=== PATIENT | female | born 1975 ===

== ENCOUNTER 2018-05-07 06:48 | Day surgery (SDC) | payer OTHER ==
[~2018-05-07 06:48] MED LIST: OSTERA TABLET1 EACH PO; VIT C-ROSE HIP500 MG PO
[2018-05-07] MEDS ORDERED: NAPROXEN375 MG PO (11:29)
== END 2018-05-07 13:25 | disposition home or self-care (01) ==
LOC: CIR.AMB 06:48
DX: N84.0 Polyp of corpus uteri (principal)